=== PATIENT | female | born 1960 | race Caucasian/White ===

== ENCOUNTER 2019-11-11 12:20 | Emergency (ER) | payer BC ==
[~2019-11-11] VITALS: Ht 162.6 cm; Wt 76.2 kg
[2019-11-11 12:26] VITALS: BP_SYST 138
--- NOTE | 2019-11-11 12:29 | NUR ---
Placed in room 02. Placed on campus monitor, blood pressure machine and pulse oximeter. To gown for exam. Side rails up.
--- NOTE | 2019-11-11 12:30 | NUR ---
Pt walked in to ER with c/o chest pain x2 days, 09/22. V/S stable, pt is afebrile. Currently resting in bed, will continue to monitor.
--- NOTE | 2019-11-11 12:32 | NUR ---
Dr Raymond evaluating patient at bedside
--- NOTE | 2019-11-11 12:37 | NUR ---
EKG performed at BS by RN. Physician given copy of EKG for review.
[2019-11-11 13:49] VITALS: BP_SYST 138
--- NOTE | 2019-11-11 13:53 | NUR ---
Patient given written and verbal discharge instructions and verbalizes understanding. ER MD discussed with patient the results and treatment provided. Patient in stable condition. ID arm band removed. Rx of Motrin given. Patient educated on pain management and to follow up with PMD. Pain Scale 1/10. Opportunity for questions provided and answered. Medication side effect fact sheet provided.
== END 2019-11-11 13:53 | disposition home or self-care (01) ==
LOC: SED 12:20
DX: R07.89 Other chest pain (principal)
CPT/HCPCS: 93005; 99283

== ENCOUNTER 2020-03-07 09:50 | Emergency (ER) | payer BC ==
[~2020-03-07] VITALS: Ht 157.5 cm; Wt 83.9 kg
[2020-03-07 10:00] VITALS: BP_SYST 140
--- NOTE | 2020-03-07 10:00 | NUR ---
Patient to ER bed 04 to gown for evaluation. Side rails up.
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
--- NOTE | 2020-03-07 10:10 | NUR ---
ER Dr. Keita at bedside examining patient.
--- NOTE | 2020-03-07 10:10 | NUR ---
Bacilio martinez in EDM - 03/07/20 at 1021 by JAMIE ANJALI Keita at [facility] examining patient.
--- NOTE | 2020-03-07 10:17 | NUR ---
Patient transported to radiology via gurney, accompanied by technicians.
--- NOTE | 2020-03-07 10:44 | NUR ---
Daughter of pt, Ok, called in regards to pt status. requested we call back with any update. #: [phone]
--- NOTE | 2020-03-07 10:57 | NUR ---
Patient given written and verbal discharge instructions and verbalizes understanding. ER MD discussed with patient the results and treatment provided. Patient in stable condition. ID arm band removed. Rx of ROSAS ROMEO given. Patient educated on pain management and to follow up with PMD. Pain Scale 0/10. Opportunity for questions provided and answered. Medication side effect fact sheet provided.
== END 2020-03-07 10:57 | disposition home or self-care (01) ==
LOC: SED 09:50
DX: S13.4XXA Sprain of ligaments of cervical spine, initial encounter (principal); S20.219A Contusion of unspecified front wall of thorax, initial encounter; V49.9XXA Car occupant (driver) (passenger) injured in unspecified traffic accident, initial encounter; Y93.89 Activity, other specified; Y92.413 State road as the place of occurrence of the external cause; Y99.8 Other external cause status
CPT/HCPCS: 71045; 72040-TC; 93005; 99284